=== PATIENT | female | born 1970 ===

== ENCOUNTER → 2017-12-24 | Outpatient (REF) ==
--- NOTE | 2017-12-24 13:32 | Diagnostic Imaging Report ---
INDICATION: Positive TB skin test. PA and lateral views of the chest were obtained. FINDINGS: The heart size, mediastinal configuration, and pulmonary vascularity are within normal limits. There is no pleural effusion, pneumothorax, or pneumonia. The osseous structures are unremarkable. IMPRESSION: No acute cardiopulmonary abnormality. Dictated by: Dictated on workstation # [id number]
== END | disposition home or self-care (01) ==
LOC: OCC 13:04
PROVIDERS: ATTEND Nurse Practitioner Family
CPT/HCPCS: 71046

== ENCOUNTER → 2020-03-08 | Outpatient (CLI) | payer OTHER | LOC: GIR 17:40 | PROVIDERS: ATTEND Nurse Practitioner Family | DX: U07.1 COVID-19 (principal) | CPT/HCPCS: 87635 ==